=== PATIENT | female | born 2000 | race Caucasian/White ===

== ENCOUNTER 2022-03-18 06:41 | Emergency (ER) | payer OTHER ==
[~2022-03-18] VITALS: Ht 177 cm; Wt 69.6 kg
--- NOTE | 2022-03-18 07:27 | ED General ---
General Chief Complaint: Back Problems Stated Complaint: KIDNEY PAIN Nursing Triage Note: pt reports with c/o right flank pain and painful urination x3days Source of Information: Patient History of Present Illness Date Seen by Provider: Mar 18, 2022 Time Seen by Provider: 07:04 Initial Comments 21 yo female presenting with complaint of right flank pain that came on this am. She had been having some UTI symptoms in last few days with burning and frequency. No vaginal discharge. She had some nausea with the pain this am. She did not take anything for the pain. She has had no fever, chills, diarrhea, change in bowels, vaginal bleeding, vaginal discharge. Timing/Duration: 2-3 Days (of UTI symptoms then a few hours of right flank pain that started this am) Severity: Moderate Associated Systoms: No Chest Pain, No Cough, No Diaphoresis, No Fever/Chills, No Headaches, No Loss of Appetite Allergies and Home Medications Allergies Coded Allergies: No Known Drug Allergies (Unverified , 03/18/22) Patient Home Medication List Home Medication List Reviewed: Yes Naproxen (Naproxen) 500 Mg Tablet, 500 MG PO Q12H PRN for flank pain Prescribed by: THANH RUCKER on 03/18/22 0932 Sulfamethoxazole/Trimethoprim (Bactrim Ds Tablet) 800 Mg-160 Mg Tablet, 1 EACH PO BID Prescribed by: THANH RUCKER on 03/18/22 0939 Review of Systems Review of Systems Constitutional: No chills, No fever EENTM: no symptoms reported Respiratory: no symptoms reported Cardiovascular: no symptoms reported Gastrointestinal: see HPI Genitourinary: see HPI : No Musculoskeletal: back pain (right CVA pain and flank pain) Skin: no symptoms reported Psychiatric/Neurological: No Symptoms Reported Past Zgcbjir-Bwtrlg-Gybqiz Hx Patient Social History Tobacco Use?: No Substance use?: No Alcohol Use?: No Immunizations Up To Date Influenza Vaccine Up-to-Date: No; Not Current Past Medical History Surgeries: No Physical Exam Vital Signs Vital Signs - First Documented 03/18/22 06:53 Temp 37.0 Pulse 70 Resp 18 B/P (MAP) 122/58 (79) Pulse Ox 100 O2 Delivery Room Air Capillary Refill : Height, Weight, BMI Height: '" Weight: lbs. oz. kg; 22.00 BMI Method: General Appearance: No Apparent Distress, WD/WN HEENT: PERRL/EOMI, Pharynx Normal Neck: Full Range of Motion, Normal Inspection, Non Tender, Supple Respiratory: Chest Non Tender, Lungs Clear, Normal Breath Sounds, No Accessory Muscle Use, No Respiratory Distress Cardiovascular: Regular Rate, Rhythm, Normal Peripheral Pulses Gastrointestinal: Normal Bowel Sounds, No Pulsatile Mass, Soft; No Distended, No Guarding, No Rebound; Tenderness (right upper flank and right CVA tender to palpation) Rectal: Deferred Back: CVA Tenderness (R) Extremity: Normal Capillary Refill, Normal Inspection, Normal Range of Motion, Non Tender, No Calf Tenderness, No Pedal Edema Neurologic/Psychiatric: Alert, Oriented x3, incinerator attendant II-XII Norm as Tested Skin: Normal Color, Warm/Dry Progress/Results/Core Measures Suspected Sepsis SIRS Temperature: Pulse: 70 Respiratory Rate: 18 Laboratory Tests 03/18/22 07:58: White Blood Count 10.0 Blood Pressure 122 /58 Mean: 79 Laboratory Tests 03/18/22 07:58: Creatinine 0.74, Platelet Count 184, Total Bilirubin 0.5 Results/Orders Lab Results Laboratory Tests Test 03/18/22 06:45 03/18/22 07:58 Range/Units Urine Color YELLOW Urine Clarity CLEAR Urine pH 7.0 5-9 Urine Specific [place] 1.010 L 1.016-1.022 Urine Protein NEGATIVE NEGATIVE Urine Glucose (UA) NEGATIVE NEGATIVE Urine Ketones NEGATIVE NEGATIVE Urine Nitrite NEGATIVE NEGATIVE Urine Bilirubin NEGATIVE NEGATIVE Urine Urobilinogen 0.2 < = 1.0 MG/DL Urine Leukocyte Esterase 1+ H NEGATIVE Urine RBC (Auto) 3+ H NEGATIVE Urine RBC 10-25 H /HPF Urine WBC 25-50 H /HPF Urine Squamous Epithelial Cells 25-50 H /HPF Urine Crystals NONE /LPF Urine Bacteria FEW H /HPF Urine Casts NONE /LPF Urine Mucus NEGATIVE /LPF Urine Culture Indicated NO Urine Test NEGATIVE NEGATIVE White Blood Count 10.0 4.3-11.0 10^3/uL Red Blood Count 4.49 3.80-5.11 10^6/uL Hemoglobin 13.0 11.5-16.0 g/dL Hematocrit 38 35-52 % Mean Corpuscular Volume 85 80-99 fL Mean Corpuscular Hemoglobin 29 25-34 pg Mean Corpuscular Hemoglobin Concent 34 32-36 g/dL Red Cell Distribution Width 13.2 10.0-14.5 % Platelet Count 184 130-400 10^3/uL Mean Platelet Volume 11.7 9.0-12.2 fL Immature Granulocyte % (Auto) 0 % Neutrophils (%) (Auto) 69 42-75 % Lymphocytes (%) (Auto) 20 12-44 % Monocytes (%) (Auto) 10 0-12 % Eosinophils (%) (Auto) 1 0-10 % Basophils (%) (Auto) 1 0-10 % Neutrophils # (Auto) 6.8 1.8-7.8 10^3/uL Lymphocytes # (Auto) 2.0 1.0-4.0 10^3/uL Monocytes # (Auto) 1.0 0.0-1.0 10^3/uL Eosinophils # (Auto) 0.1 0.0-0.3 10^3/uL Basophils # (Auto) 0.1 0.0-0.1 10^3/uL Immature Granulocyte # (Auto) 0.0 0.0-0.1 10^3/uL Sodium Level 140 135-145 MMOL/L Potassium Level 3.7 3.6-5.0 MMOL/L Chloride Level 103 98-107 MMOL/L Carbon Dioxide Level 26 21-32 MMOL/L Anion Gap 11 5-14 MMOL/L Blood Urea Nitrogen 14 7-18 MG/DL Creatinine 0.74 0.60-1.30 MG/DL Estimat Glomerular Filtration Rate 118 BUN/Creatinine Ratio 19 Glucose Level 87 70-105 MG/DL Calcium Level 9.9 8.5-10.1 MG/DL Corrected Calcium 8.5-10.1 MG/DL Total Bilirubin 0.5 0.1-1.0 MG/DL Aspartate Amino Transf (AST/SGOT) 17 5-34 U/L [place] Aminotransferase (ALT/SGPT) 13 0-55 U/L Alkaline Phosphatase 51 40-136 U/L Total Protein 7.4 6.4-8.2 GM/DL Albumin 4.8 H 3.2-4.5 GM/DL My Orders Orders - THANH RUCKER MD Hcg,Qualitative Urine (03/18/22 06:45) Urinalysis (03/18/22 06:45) Comprehensive Metabolic Panel (03/18/22 07:51) Ed Iv/Invasive Line Start (03/18/22 07:51) Cbc With Automated Diff (03/18/22 07:51) Ct Abdomen/Pelvis Wo (03/18/22 07:51) Ketorolac Injection (Toradol Injection) (03/18/22 07:51) Ns Iv 1000 Ml (Sodium Chloride 0.9%) (03/18/22 07:51) Vital Signs/I&O 03/18/22 03/18/22 06:53 09:50 Temp 37.0 37.0 Pulse 70 70 Resp 18 18 B/P (MAP) 122/58 (79) 122/58 Pulse Ox 100 100 O2 Delivery Room Air Room Air Capillary Refill : Blood Pressure Mean: 79 Progress Note #1: Progress Note Urine is negative. Urinalysis shows some blood and white blood cells with bacteria. Since she has blood in the urine will check labs and CT scan to evaluate for possible kidney stone versus pyelonephritis versus cystitis versus ovarian cyst versus uterine fibroids. Give Toradol 30 mg IV x1 and normal saline 1 L for pain and hydration. Progress Note #2: Progress Note Labs are stable without acute significant abnormality on CBC or chemistry. The CT scan shows 4.1 cm area in the right adnexa for possible hemorrhagic ovarian cyst. As patient is having pain specifically in the pelvis were lower abdomen this cyst may be causing her pain but is referring the pain up towards her ki dney. Counseled patient and her mother on results and findings. We will continue with naproxen for pain. Advised if she has suddenly more severe pain to return or seek care. Given an outpatient ultrasound order if she is not seeing improvement over the next 2 or 3 days. Diagnostic Imaging Diagonstic Imaging: CT Plain Films/CT/US/NM/MRI: abdomen, pelvis Comments [facility] [place], [place] NAME: SHIMA VU [facility] REC#: [id number] PT STATUS: REG ER : 2000 PHYSICIAN: THANH RUCKER MD ADMIT DATE: 03/18/22/ER FS Signed Date of Exam:03/18/22 CT ABDOMEN/PELVIS WO PROCEDURE: CT abdomen and pelvis without contrast. TECHNIQUE: Multiple contiguous axial images were obtained through the abdomen and pelvis without the use of intravenous contrast. Auto Exposure Controls were utilized during the CT exam to meet ALARA standards for radiation dose reduction. INDICATION: Right flank pain COMPARISON: None available FINDINGS: Visualized lung bases are clear. The unenhanced liver and spleen are unremarkable. The adrenal glands are unremarkable. The pancreas is prominent in size though there is no significant inflammatory stranding about the pancreas. The kidneys are unremarkable. The gallbladder is unremarkable. No aneurysmal dilatation of the abdominal aorta. The urinary bladder is unremarkable. 4.1 cm round hypodensity is identified within the right adnexal region. The uterus and left adnexa is unremarkable. Moderate amount of stool within the colon. The appendix is not well visualized. No significant inflammatory stranding is seen within the right lower quadrant. No bowel obstruction. Small amount of free fluid is noted within the lower pelvis. No free air. No significant adenopathy. [place] left curvature of the spine. No acute osseous abnormality. IMPRESSION: 4.1 cm right adnexal hypodensity. Given appearance, this may simply relate to a hemorrhagic ovarian cyst or dominant follicle. Ovarian torsion not completely excluded. Recommend clinical correlation. Further evaluation with pelvic ultrasound would help to further evaluate. Trace free fluid within the lower pelvis. Diffuse prominence of the pancreas. This is favored simply to be physiologic for the patient, though this can also be seen with pancreatitis though there is no significant adjacent inflammatory stranding. Recommend correlation with laboratory values. Moderate amount of stool throughout the colon without bowel obstruction. Dictated by: Dictated on workstation # [id number] Dict: 03/18/22822 Trans: 03/18/22848 [facility] [id number] Interpreted by: LASHAWN ESPAÑA MD Electronically signed by: LASHAWN ESPAÑA MD 03/18/22848 Reviewed: Reviewed by Me Departure Impression Primary Impression: Hemorrhagic cyst of right ovary Additional Impression: Cystitis with hematuria Disposition: HOME, SELF-CARE Condition: Stable Departure-Patient Inst. Decision time for Depature: 09:29 Referrals: NO,LOCAL PHYSICIAN (PCP) Primary Care Physician [facility] Patient Instructions: Ovarian Cyst ED, Urinary Tract Infection, Adult ED Add. Discharge Instructions: Stay well hydrated and drink plenty of water. Take full course of antibiotics to treat for urine infection. If your pain suddenly worsens or you are not doing better in 2-3 days then return or check with clinic. To have ultrasound scheduled you could call [phone] and let them know you have an order for ultrasound and they should be able to schedule it for you. This would be done at [facility] in [place]. All discharge instructions reviewed with patient and/or family. Voiced understanding. Scripts Sulfamethoxazole/Trimethoprim (Bactrim Ds Tablet) 800 Mg-160 Mg Tablet 1 EACH PO BID for UTI for 5 Days, #10 TAB 0 Refills Prov: THANH RUCKER MD 03/18/22 Naproxen (Naproxen) 500 Mg Tablet 500 MG PO Q12H PRN for flank pain for 7 Days, #14 TAB 0 Refills Prov: THANH RUCKER MD 03/18/22 THANH RUCKER MD Mar 18, 2022 07:27
[2022-03-18 07:29] LABS: BACTERIA,URINE FEW /HPF; BILIRUBIN,URINE NEGATIVE (NEGATIVE); CLARITY,URINE CLEAR; COLOR,URINE YELLOW; GLUCOSE, URINE (UA) NEGATIVE (NEGATIVE); KETONES,URINE NEGATIVE (NEGATIVE); LEUKOCYTE ESTERASE ,URINE 1+ (NEGATIVE); NITRITE,URINE NEGATIVE (NEGATIVE); PROTEIN,URINE NEGATIVE (NEGATIVE); SQUAMOUS EPITHELIAL CELL,UR 25-50 /HPF; WBC,URINE 25-50 /HPF
[2022-03-18 07:30] LABS: HCG,QUALITATIVE URINE NEGATIVE (NEGATIVE)
[2022-03-18] MEDS ORDERED: NS IV 1000 ML 1,000 ML IV STA (07:51)
[2022-03-18] MEDS ORDERED: KETOROLAC 30 MG/ML VIAL IVP STA (07:51)
[2022-03-18 08:01] LABS: BASOPHILS # (AUTO) 0.1 10^3/uL (0.0-0.1); BASOPHILS % (AUTO) 1 % (0-10); EOSINOPHILS # (AUTO) 0.1 10^3/uL (0.0-0.3); EOSINOPHILS % (AUTO) 1 % (0-10); HEMATOCRIT 38 % (35-52); LYMPHOCYTES % (AUTO) 20 % (12-44); MEAN CORPUSCULAR HEMOGLOBIN 29 pg (25-34); MEAN CORPUSCULAR HGB CONC 34 g/dL (32-36); MEAN CORPUSCULAR VOLUME 85 fL (80-99); MEAN PLATELET VOLUME 11.7 fL (9.0-12.2); MONOCYTES % (AUTO) 10 % (0-12); NEUTROPHILS # (AUTO) 6.8 10^3/uL (1.8-7.8); NEUTROPHILS % (AUTO) 69 % (42-75); PLATELET COUNT 184 10^3/uL (130-400)
[2022-03-18 08:21] LABS: ALANINE AMINOTRANSFERASE 13 U/L (0-55); ALBUMIN 4.8 GM/DL (3.2-4.5); ALKALINE PHOSPHATASE 51 U/L (40-136); BILIRUBIN,TOTAL 0.5 MG/DL (0.1-1.0); BUN/CREATININE RATIO 19; CALCIUM 9.9 MG/DL (8.5-10.1); CARBON DIOXIDE 26 MMOL/L (21-32); CHLORIDE 103 MMOL/L (98-107); CREATININE SERUM 0.74 MG/DL (0.60-1.30); GFR ESTIMATED 118; GLUCOSE 87 MG/DL (70-105); POTASSIUM 3.7 MMOL/L (3.6-5.0); SODIUM 140 MMOL/L (135-145); TOTAL PROTEIN 7.4 GM/DL (6.4-8.2)
--- NOTE | 2022-03-18 08:38 | Diagnostic Imaging Report ---
PROCEDURE: CT abdomen and pelvis without contrast. TECHNIQUE: Multiple contiguous axial images were obtained through the abdomen and pelvis without the use of intravenous contrast. Auto Exposure Controls were utilized during the CT exam to meet ALARA standards for radiation dose reduction. INDICATION: Right flank pain COMPARISON: None available FINDINGS: Visualized lung bases are clear. The unenhanced liver and spleen are unremarkable. The adrenal glands are unremarkable. The pancreas is prominent in size though there is no significant inflammatory stranding about the pancreas. The kidneys are unremarkable. The gallbladder is unremarkable. No aneurysmal dilatation of the abdominal aorta. The urinary bladder is unremarkable. 4.1 cm round hypodensity is identified within the right adnexal region. The uterus and left adnexa is unremarkable. Moderate amount of stool within the colon. The appendix is not well visualized. No significant inflammatory stranding is seen within the right lower quadrant. No bowel obstruction. Small amount of free fluid is noted within the lower pelvis. No free air. No significant adenopathy. [place] left curvature of the spine. No acute osseous abnormality. IMPRESSION: 4.1 cm right adnexal hypodensity. Given appearance, this may simply relate to a hemorrhagic ovarian cyst or dominant follicle. Ovarian torsion not completely excluded. Recommend clinical correlation. Further evaluation with pelvic ultrasound would help to further evaluate. Trace free fluid within the lower pelvis. Diffuse prominence of the pancreas. This is favored simply to be physiologic for the patient, though this can also be seen with pancreatitis though there is no significant adjacent inflammatory stranding. Recommend correlation with laboratory values. Moderate amount of stool throughout the colon without bowel obstruction. Dictated by: Dictated on workstation # [id number]
[2022-03-18] MEDS ORDERED: NAPR-915 PO (09:32)
[2022-03-18] MEDS ORDERED: SULF-221 PO (09:39)
[2022-03-18 09:50] VITALS: BP 122/58
== END 2022-03-18 09:46 | disposition home or self-care (01) ==
LOC: ER FS 06:44
DX: N83.291 Other ovarian cyst, right side (principal); N30.01 Acute cystitis with hematuria; Z32.02 Encounter for pregnancy test, result negative
CPT/HCPCS: 36415; 74176; 80053; 81000; 84703; 85025